=== PATIENT | female | born 1940 | race Asian ===

== ENCOUNTER 2020-07-13 19:34 | Inpatient (IN) | payer MEDICARE ==
[~2020-07-13] VITALS: Ht 157.5 cm; Wt 59.0 kg
[2020-07-13 20:45] VITALS: BP 140/96
[2020-07-13] MEDS ORDERED: MAALOX 30 ML SUSP *UDC PO PRN (21:30)
[2020-07-13] MEDS ORDERED: MOM 30ML SUSPENSION UDC PO PRN (21:30)
[2020-07-13] MEDS ORDERED: ACETAMINOPHEN TAB 650MG DOSE (2X325MG) PO PRN (21:30)
--- NOTE | 2020-07-13 21:30 | HPEPDOC ---
[facility] Medical History & Physical Date of Admission Jul 13, 2020 Date of Service: Jul 13, 2020 Primary Care Physician: Leroy Mcclain Attending Physician: KENDY SPARROW MD History and Physical TIME OF SERVICE: 10:14 PM CHIEF COMPLAINT: Transferred for evaluation of atrial fibrillation HISTORY OF PRESENT ILLNESS: This 80-year-old female reports being told she had atrial fibrillation about 12- 15 years ago after having a syncopal event. 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 2 weeks ago she had left cataract surgery and was told that she was in A. fib. Again yesterday a while preparing for right-sided cataract surgery, she was found to be in rapid A. fib, therefore, the procedure was postponed and she was sent to [facility]. She denied having chest pain, shortness of breath, palpitations, dizziness or any other symptoms associated with atrial fibrillation. Despite receiving 50 mg of esmolol, 10 mg of diltiazem 2, 150 mg of amiodarone, diltiazem 20 mg 1, Coreg 3.125 mg by mouth and metoprolol 25 mg by mouth she remained in rapid A. fib. Because the BNP was elevated, she was given Lasix. Dr. Gale consulted Dr. Dickinson who recommended transferring the patient here for further evaluation. Synopsis of workup from [facility]: EKG showed rapid A. fib with a heart rate of 134 WBC 2.7, hemoglobin 13.8, platelets 348, sodium 140, potassium 4.3, chloride 103, CO2 28, BUN 14, creatinine 1.08, GFR 49, AST 18, ALT 22, alkaline phosphatase 93, troponin 0.073, magnesium 2.1, TSH 3.28, BNP 1425, INR was 0.99 Chest x-ray showed left lower lobe linear atelectasis versus less likey pneumonia, UA was unremarkable. CTA of the chest was negative for pulmonary emboli but confirmed that she had emphysema and plaques in the thoracic aorta REVIEW OF SYSTEMS: 12 point review of systems negative except as listed in HPI PAST MEDICAL/ SURGICAL HISTORY: Hypertension Asthma Hypothyroidism Dyslipidemia Chronic benign neutropenia (per patient) Left cataract surgery Tonsillectomy SOCIAL HISTORY: She doesn't smoke She is a . Her around 9 years ago FAMILY HISTORY: n/a ALLERGIES: Please see below. HOME MEDICATIONS: Please see below. PHYSICAL EXAMINATION: VITAL SIGNS: Please see below. GEN: well-nourished / well developed/ NAD INTEGUMENT: not flushed/ not jaundice HEENT: lips acyanotic /mucus membranes moist and pink / sclera anicteric CVS: RRR/NMRG/ radial pulses irregularly irregular / no lower extremity edema LUNGS: able to speak full sentences without stopping to take a breath / no coughing / lungs are clear to auscultation bilaterally on room air ABDOMEN: Contour (distended) /soft & not tender with palpation MSK/EXTREMITIES: NCAT / range of motion intact in all 4 extremities NEURO: CN 2-12 are grossly intact / speech is not dysarthric PSYCH: alert and oriented to person place and time/ able to understand and follow all commands LABORATORY DATA: See HPI. IMAGING: See HPI. MICROBIOLOGY: Please see below. ASSESSMENT: Ms. Zepeda is an 80-year-old with a history of chronic hypertension, asthma, hypothyroidism, COPD, dyslipidemia and possible paroxysmal atrial fibrillation who was transferred from [facility] for higher level of care. PLAN: 1 Suspected Paroxysmal Atrial Fibrillation Her HTN is her main risk factor for chronic a fib CHADS VASC Score to determine risk of stroke 4 Plan: telemetry / f/u serial Trops to r/o OH / c/w Diltiazem 240mg ER tommorow evening / her HR is in the 110s therefore Iwill avoid adding additiona rate control medications to avoid iatrogenic heart block for now / pending Echo to r/o valvulopathy will start Heparin drip / if the cause appears idiopathic she will need to to be referred for outpatient sleep study to r/o TYRONE as cause 2. Chronic Hypertension Lisinopril / Diltiazem 3. Chronic Asthma Symbicort PRN 4. Hypothyroidism Levothyroxine 5. Dyslipidemia DVT PROPHYLAXIS: heparin drip DISPOSITION: home after more than 2 midnight's stay Home Medications Scheduled Aspirin (Aspirin EC) 81 Mg Tablet.dr, 81 MG PO DAILY Calcium Carbonate/Vitamin D3 (Calcium 600-Vit D3 400 Tablet) 1 Each Tablet, 1 TAB PO DAILY Cholecalciferol (Vitamin D3) (Vitamin D3) 1,000 Unit Tablet, 5,000 UNITS PO MONISHA LY Cholecalciferol (Vitamin D3) (Vitamin D3) 1,000 Unit Tablet, 2,000 UNITS PO QHS Levothyroxine Sodium (Synthroid) 75 Mcg Tablet, 75 MCG PO DAILY Lisinopril (Lisinopril) 10 Mg Tablet, 10 MG PO DAILY Portis-3 Fatty Acids/Fish Oil (Fish Oil 1,000 mg Capsule) 1 Each Capsule, 1,000 MG PO DAILY Salmeterol (Serevent Diskus) 50 Mcg Blst.w.dev, 1 PUFF INH BID dilTIAZem HCl (Diltiazem 24Hr Cd) 240 Mg Cap.er.24h, 240 MG PO QHS Scheduled PRN Loratadine (Claritin) 10 Mg Tablet, 10 MG PO DAILY PRN for ALLERGIES Allergies Coded Allergies: Penicillins (Verified Allergy, Severe, ANAPHYLAXIS, 07/13/20) Sulfa (Sulfonamide Antibiotics) (Verified Allergy, Unknown, 07/13/20) A-FIB/CHADSVASC A-FIB History Current/History of A-Fib/PAF?: No Current PO Anticoag Therapy: No KENDY SPARROW MD Jul 13, 2020 21:29
[2020-07-13 22:14] LABS: HEMATOCRIT 42.3 % (36.0-47.0); HEMOGLOBIN 13.4 g/dl (12.0-15.5); MEAN CORPUSCULAR HEMOGLOBIN 28.8 pg (27.0-33.0); MEAN CORPUSCULAR HGB CONC 31.7 g/dl (32.0-36.5); MEAN CORPUSCULAR VOLUME 90.8 fl (80.0-96.0); PLATELET COUNT, AUTOMATED 361 10^3/uL (150-450); RED BLOOD COUNT 4.66 10^6/uL (4.00-5.40); WHITE BLOOD COUNT 2.8 10^3/uL (4.0-10.0)
[2020-07-13 22:31] LABS: INR 1.06
[2020-07-13 22:32] LABS: PARTIAL THROMBOPLASTIN TIME 26.4 SECONDS (24.2-38.5)
[2020-07-13 22:59] LABS: ALBUMIN 3.3 GM/DL (3.2-5.2); BILIRUBIN,TOTAL 0.2 MG/DL (0.2-1.0); CALCIUM LEVEL 9.5 MG/DL (8.8-10.2); CREATININE FOR GFR 1.11 MG/DL (0.55-1.30); GLOMERULAR FILTRATION RATE 50.1 (>32); PHOSPHORUS LEVEL 3.5 MG/DL (2.5-4.9); POTASSIUM SERUM 4.1 MEQ/L (3.5-5.1); THYROID STIMULATING HORMONE 3.17 uIU/ML (0.358-3.740); TOTAL PROTEIN 6.8 GM/DL (6.4-8.2); TROPONIN I 0.07 NG/ML (< 0.10)
[2020-07-13] MEDS ORDERED: SYNT75TA PO (23:54)
[2020-07-13] MEDS ORDERED: FISH1000 PO (23:54)
[2020-07-13] MEDS ORDERED: D31000TA2 PO ×2 (23:54)
[2020-07-13] MEDS ORDERED: LISI10TA4 PO (23:54)
[2020-07-13] MEDS ORDERED: CALC1TAB63 PO (23:54)
[2020-07-13] MEDS ORDERED: DILT240C83 PO (23:54)
[2020-07-13] MEDS ORDERED: SALMDISK INH (23:54)
[2020-07-13] MEDS ORDERED: CLAR10TA7 PO (23:54)
[2020-07-13] MEDS ORDERED: ASPI-161 PO (23:54)
[2020-07-14] VITALS: BP 125/82
--- NOTE | 2020-07-14 00:30 | REPVR ---
PROCEDURE INFORMATION: Exam: XR Chest, 1 View Exam date and time: 07/13/2020 11:07 PM Age: 80 years old Clinical indication: Dyspnea TECHNIQUE: Imaging protocol: XR of the chest Views: 1 view. COMPARISON: No relevant prior studies available. FINDINGS: Lungs: Mild left base infiltrate or atelectasis with decreased delineation of the medial left hemidiaphragm. Pleural spaces: Unremarkable. No pleural effusion. No pneumothorax. Heart/Mediastinum: Upper normal heart size considering AP and lordotic projection. Bones/joints: Unremarkable. IMPRESSION: 1. Mild left base infiltrate or atelectasis. 2. Otherwise essentially negative lordotic chest. Electronically signed by: Joe Robert On 07/14/2020 00:30:17 AM
[2020-07-14] MEDS ORDERED: HEPARIN SOD (PORCINE) 5000UNITS/ML 1ML VIAL/SYRINGE IV ONE (00:45)
[2020-07-14] MEDS ORDERED: HEPARIN SOD (PORCINE) 5000UNITS/ML 1ML VIAL/SYRINGE IV PRN (00:45)
[2020-07-14] MEDS ORDERED: HEPARIN DRIP 25,000 UNITS in IV 1 EA IV SCH (01:00)
[2020-07-14 03:37] LABS: HEMATOCRIT 40.7 % (36.0-47.0); HEMOGLOBIN 13.3 g/dl (12.0-15.5); MEAN CORPUSCULAR HEMOGLOBIN 29.2 pg (27.0-33.0); MEAN CORPUSCULAR HGB CONC 32.7 g/dl (32.0-36.5); MEAN CORPUSCULAR VOLUME 89.5 fl (80.0-96.0); PLATELET COUNT, AUTOMATED 353 10^3/uL (150-450); RED BLOOD COUNT 4.55 10^6/uL (4.00-5.40); WHITE BLOOD COUNT 3.6 10^3/uL (4.0-10.0)
[2020-07-14 04:00] VITALS: BP 121/85
[2020-07-14 04:19] LABS: CREATININE FOR GFR 1.04 MG/DL (0.55-1.30); POTASSIUM SERUM 3.7 MEQ/L (3.5-5.1)
[2020-07-14] MEDS: LEVOTHYROXINE 75MCG TABLET (0.075MG) PO SCH (05:37)
[2020-07-14] MEDS ORDERED: SYMBICORT 80/4.5MCG INHALER 6GM INH PRN (06:30)
[2020-07-14] MEDS ORDERED: atenoloL 25 MG TAB PO ONE (07:30)
[2020-07-14 08:00] VITALS: BP 135/67
[2020-07-14] MEDS: SALMETEROL DISKUS 50MCG INHALER (SEREVENT) INH SCH ×2 (08:00→20:24)
[2020-07-14] MEDS: OMEPRAZOLE 20 MG CAP PO SCH (08:30)
[2020-07-14] MEDS: ASPIRIN 81 MG ENTERIC TAB PO SCH (08:30)
[2020-07-14] MEDS ORDERED: lisinopriL 10 MG TAB PO SCH (09:00)
[2020-07-14] MEDS ORDERED: APIXABAN 5 MG TAB (ELIQUIS) PO SCH (09:00)
--- NOTE | 2020-07-14 10:41 | IPNPDOC ---
Date Seen The patient was seen on 07/14/20. Progress Note SUBJECTIVE: pt had heart rate in 120-140's bpm and was given diltiazem, amiodarone, Coreg and metoprolol at [facility]. This morning. Heart rate is 120, but after medications were given metoprolol and Cardizem. Patient's heart rate are in the 80s and 90s with no complaints of chest pain, pressure, tightness, lightheadedness or dizzinessshe denies any palpitations. No complaints of sh ortness of breath. , Troponin I Railroad was 0.07 CT chest was negative for PE. OBJECTIVE PHYSICAL EXAMINATION: VITAL SIGNS: Please see below. GENERAL: No respiratory distress HEENT: No JVD, thyromegaly, no cervical lymphadenopathy. No carotid bruits CARDIOVASCULAR: Irregularly irregular, tachycardic RESPIRATORY: Diminished ABDOMINAL: Positive bowel sounds, soft, nontender, nondistended EXTREMITIES: No cyanosis or clubbing LABORATORY DATA, IMAGING STUDIES, MICROBIOLOGY: Please see below. ASSESSMENT AND PLAN: 80-year-old female with history of hypothyroidism, asthma, dyslipidemia, admitted for new-onset atrial fibrillation with rapid ventricular rate. PROBLEMS: A. fib with RVR -Currently on atenolol and diltiazem -Status post IV heparin on admission. Currently on eliquis bid renally dosed and prilosec -heart rate in 120-140's bpm and was given diltiazem, amiodarone, Coreg and metoprolol at [facility]. Hypertension -Discontinued lisinopril. Since the patient is both an atenolol, diltiazem, to prevent low blood pressure Asthma -Compensated -On home Serevent Hypothyroidism -Synthroid Dyslipidemia -Chronic Disposition discharge the morning if stable VS, I&O, 24H, Fishbone Vital Signs/I&O Vital Signs Date Time Temp Pulse Resp B/P (MAP) Pulse Ox O2 Delivery O2 Flow Rate FiO2 07/14/20 08:31 121 135/67 07/14/20 08:00 98.2 18 95 Room Air I&O- Last 24 Hours up to 6 AM 07/14/20 06:00 Intake Total 0 ml Output Total 500 ml Balance -500 ml Laboratory Data 24H LABS Laboratory Tests 2 07/13/20 22:05: Nucleated Red Blood Cells % (auto) 0.0 07/13/20 22:06: Prothrombin Time 14.0, Prothromb Time International Ratio 1.06, Activated Partial Thromboplast Time 26.4, Anion Gap 8, Glomerular Filtration Rate 50.1, Calcium Level 9.5, Phosphorus Level 3.5, Magnesium Level 2.0, Total Bilirubin 0.2, Aspartate Amino Transf (AST/SGOT) 13, Alanine Aminotransferase (ALT/SGPT) 23, Alkaline Phosphatase 97, Troponin I 0.07, JF-Mua-P-Type Natriuretic Peptide 1627H, Total Protein 6.8, Albumin 3.3, Albumin/Globulin Ratio 0.9L, Thyroid Stimulating Hormone (TSH) 3.170 07/14/20 03:13: Nucleated Red Blood Cells % (auto) 0.0, Anion Gap 8, Glomerular Filtration Rate 54.0, Calcium Level 9.0, Troponin I 0.06 07/14/20 09:45: CBC/BMP Laboratory Tests 07/13/20 22:05 07/13/20 22:06 07/14/20 03:13 STANLEY GIL MD Jul 14, 2020 10:41
[2020-07-14 12:00] VITALS: BP 140/75
[2020-07-14 16:00] VITALS: BP 124/70
[2020-07-14] MEDS ORDERED: ELIQ2.5T PO (16:58)
[2020-07-14] MEDS ORDERED: OMEP-218 PO (16:58)
[2020-07-14] MEDS ORDERED: ELIQ5TAB PO (17:03)
[2020-07-14] MEDS: APIXABAN 5 MG TAB (ELIQUIS) PO SCH (19:54)
[2020-07-14 20:00] VITALS: BP 119/75
[2020-07-15] VITALS: BP 115/58
[2020-07-15] MEDS: LEVOTHYROXINE 75MCG TABLET (0.075MG) PO SCH (05:21)
[2020-07-15] MEDS: SALMETEROL DISKUS 50MCG INHALER (SEREVENT) INH SCH (07:34)
[2020-07-15 08:00] VITALS: BP 136/68
[2020-07-15] MEDS ORDERED: atenoloL 25 MG TAB PO ONE (08:00)
[2020-07-15 09:36] VITALS: BP 136/68
[2020-07-15] MEDS: OMEPRAZOLE 20 MG CAP PO SCH (09:36)
[2020-07-15] MEDS: ASPIRIN 81 MG ENTERIC TAB PO SCH (09:36)
[2020-07-15] MEDS: APIXABAN 5 MG TAB (ELIQUIS) PO SCH (09:36)
[2020-07-15 11:44] VITALS: BP 141/90
--- NOTE | 2020-07-15 11:54 | ECHO ---
DATE OF PROCEDURE: 07/13/2020 Age: 80 Gender: Female Height: 157 cm Weight: 59 kg REFERRING PHYSICIAN: Phyllis Hoyt MD INDICATION: Cardiac dysrhythmia, unspecified. MEASUREMENTS: 2D Measurements: Intraventricular septum 1.12 cm Posterior wall 0.77 cm Left ventricle diastole 4.1 cm Aortic root 2.7 cm Left atrium 3.6 cm Left atrial volume index 27.5 Inferior vena cava 1.7 cm with normal respiratory variation Doppler Measurements: Trace aortic regurgitation No aortic stenosis Aortic valve velocity 97.6 cm/s LVOT velocity 70.5 cm/s Very mild mitral regurgitation Mitral E velocity 113 cm/s Mitral deceleration time 129 msec Very mild tricuspid regurgitation Estimated right ventricular systolic pressure 37-42mmHg Estimated right atrial pressure 5-10 mmHg Very mild pulmonic regurgitation Pulmonary artery acceleration time 82 msec MITRAL ANNULAR TISSUE DOPPLER E prime septal 6.3 cm/s, E prime lateral 9.6 cm/s DESCRIPTION: Rhythm was atrial fibrillation with controlled ventricular response. Image quality was fair. This was a 2D, M-mode, color flow Doppler, and pulsed wave Doppler examination including mitral annular tissue Doppler. CONCLUSIONS: 1. Normal left ventricle internal dimensions and wall thickness. Normal regional LV wall motion and wall thickening. Normal LV systolic function. LVEF 60% by visual estimate. Unable to adequate assess LV diastolic function in the setting of atrial fibrillation. 2. Mild aortic valve sclerosis of a 3-cuspid aortic valve. Trace aortic regurgitation. 3. Suggestive of moderate elevation of pulmonary artery systolic pressure versus mild-moderate elevation of estimated right ventricle systolic pressure. Normal right ventricle size and systolic function. Normal right atrial size. 4. Moderate mitral annular calcification with very mild mitral regurgitation. No mitral stenosis. 5. Normal left atrial volume index. 6. No pericardial effusion. MTDD
== END 2020-07-15 13:13 | disposition home or self-care (01) | DRG 310 ==
LOC: M PCU 20:40
PROVIDERS: ADMIT Internal Medicine; ATTEND Internal Medicine
DX: I48.0 Paroxysmal atrial fibrillation (principal); J45.909 Unspecified asthma, uncomplicated; I10 Essential (primary) hypertension; E78.5 Hyperlipidemia, unspecified; E03.9 Hypothyroidism, unspecified; Z79.82 Long term (current) use of aspirin; Z79.899 Other long term (current) drug therapy; Z88.0 Allergy status to penicillin; Z88.2 Allergy status to sulfonamides